=== PATIENT | male | born 1995 | race Caucasian/White ===

== ENCOUNTER 2017-12-12 20:46 | Emergency (ER) | payer BC ==
[~2017-12-12] VITALS: Ht 170.2 cm; Wt 78.0 kg
[2017-12-12 20:53] VITALS: BP 145/79; PULSE 91; RESP 16; TEMP 97.8; O2SAT 97
[2017-12-12 21:06] VITALS: BP 150/95; PULSE 99; RESP 17; O2SAT 99
[2017-12-12 21:26] VITALS: RESP 14; O2SAT 99
[2017-12-12] MEDS ORDERED: PANTOPRAZOLE SODIUM 40 MG VIAL IV PUSH ONE (21:30)
[2017-12-12] MEDS ORDERED: ONDANSETRON ODT 4 MG TAB PO ONE (21:30)
[2017-12-12] MEDS ORDERED: SODIUM CHLOR 0.9% 1000 ML INJ 1,000 ML IV ONE (21:30)
--- NOTE | 2017-12-12 21:34 | PD ---
HPI Chief Complaint: Abdominal Pain Time Seen by Provider: 20:59 Travel History International Travel<30 days: Yes Contact w/Intl Traveler<30days: Yes Name of Country Traveled to: [place] Traveled to known affect area: Yes History of Present Illness HPI The patient is a 22 year old male who presents to the [facility] emergency department with a history of midepigastric abdominal pain that he reports has been occurring daily and usually occurs at night over the last 1-2 months. He reports that he has had problems with his stomach in the past and in 2009 underwent endoscopy that revealed gastritis. He reports that he has not followed up with a physician regarding this since moving to this country. The patient reports that he has had nausea and vomiting associated with this. He denies having any diarrhea. He reports that he has been moving his bowels regularly. He denies having any blood in his stool or black or tarry stools. He denies having any weight loss. He reports that the abdominal pain is squeezing in character. He reports having associated abdominal bloating at night that goes away by the morning. He denies having any dysuria, hematuria, urinary urgency, or frequency. He reports that certain foods do make his symptoms worse as well as drinking alcohol. He reports that he drinks alcohol on the weekend. He reports that he drinks "a lot" on the weekends. On review of systems otherwise, the patient denies having any known recent fevers, cough or congestion, neck pain, chest pain, shortness of breath, or neurologic symptoms. The patient denies taking anything for these symptoms. He denies taking Tylenol, ibuprofen, Aleve, or any other seka-yyw-noaffoh medications on a regular basis [facility] Past Medical History Narrative Medical The patient's past medical history is significant for gastritis diagnosed in 2009 Immunizations Current: Yes Tetanus Vaccination: Unknown Influenza Vaccination: Yes Past Surgical History Narrative Surgical The patient's past surgical history is reportedly none. Social History Alcohol Use: Yes (A lot reportedly on the weekends) Tobacco Use: No Substance Use: No Allergies-Medications (Allergen,Severity, Reaction): Coded Allergies: No Known Allergies (Unverified , 12/12/17) Reported Meds & Prescriptions Reported Meds & Active Scripts Active No Active Prescriptions or Reported Medications Review of Systems Except as stated in HPI: all other systems reviewed are Neg General / Constitutional: No: Fever Eyes: No: Visual changes HENT: No: Headaches Cardiovascular: No: Chest Pain or Discomfort Respiratory: No: Shortness of Breath Gastrointestinal: Positive: Nausea, Vomiting, Abdominal Pain, Indigestion, No: Diarrhea, Hematochezia, Constipation, Changes in Bowel Habits, Loss of Appetite Genitourinary: No: Dysuria Musculoskeletal: No: Pain Skin: No Rash Neurologic: Positive: Weakness (Generalized fatigue and weakness), No: Focal Abnormalities, Change in Mentation, Slurred Speech, Sensory Disturbance Psychiatric: No: Depression Endocrine: No: Polydipsia Hematologic/Lymphatic: No: Easy Bruising Physical Exam Narrative General: The patient is a well-developed well-nourished male in no acute distress. Head and Neck exam: Head is normocephalic atraumatic. Eyes: EOMI, pupils are equal round and reactive to light. Nose: Midline septum with pink mucous membranes Mouth: Dentition unremarkable. Moist mucus membranes. Posterior oropharynx is not erythematous. No tonsillar hypertrophy. Uvula midline. Airway patent. Neck: No palpable lymphadenopathy. No nuchal rigidity. No thyromegaly. Cardiovascular: Regular rate and rhythm without murmurs, gallops, or rubs. No pulse deficit to the extremities on simultaneous auscultation and palpation of his radial artery. Lungs: Clear to auscultation bilaterally. No wheezes, rhonchi, or rales. Abdomen: Soft, with reported discomfort on palpation of the midepigastric and left upper quadrant of the abdomen, no other tenderness on palpation of the other quadrants. No tenderness on palpation of McBurney's point. Negative Posadas sign. Normal bowel sounds are audible. No guarding, rebound, or rigidity. Extremities: No clubbing, cyanosis, or edema. 2+ pulses in all 4 extremities. No calf tenderness on palpation. Back: No costovertebral angle tenderness to palpation. Neurologic Exam: Grossly nonfocal. Skin Exam: No rash noted. Intact skin that is warm and dry. Data Data Last Documented VS Vital Signs Date Time Temp Pulse Resp B/P (MAP) Pulse Ox O2 Delivery O2 Flow Rate FiO2 12/12/17 21:26 14 99 Room Air 12/12/17 21:06 99 12/12/17 20:53 97.8 Orders Orders Electrocardiogram (12/12/17 21:23) Complete Blood Count With Diff (12/12/17 21:23) Comprehensive Metabolic Panel (12/12/17 21:23) C-Reactive Protein (Crp) (12/12/17 21:23) Lipase (12/12/17 21:23) Urinalysis - C+S If Indicated (12/12/17 21:23) Magnesium (Mg) (12/12/17 21:23) Chest, Single Ap (12/12/17 21:23) Iv Access Insert/Monitor (12/12/17 21:23) Ecg Monitoring (12/12/17 21:23) Oximetry (12/12/17 21:23) Sodium Chlor 0.9% 1000 Ml Inj (Ns 1000 M (12/12/17 21:30) Ondansetron Odt (Zofran Odt) (12/12/17 21:30) Pantoprazole Inj (Protonix Inj) (12/12/17 21:30) Ct Abd/Pel W Iv Contrast(Rout) (12/12/17 22:35) Sodium Chlorid 0.9% 500 Ml Inj (Ns 500 M (12/12/17 22:45) Iohexol 350 Inj (Omnipaque 350 Inj) (12/12/17 23:07) Labs Laboratory Tests Test 12/12/17 21:30 12/12/17 22:55 White Blood Count 13.6 TH/MM3 Red Blood Count 6.41 MIL/MM3 Hemoglobin 16.5 GM/DL Hematocrit 51.3 % Mean Corpuscular Volume 80.1 FL Mean Corpuscular Hemoglobin 25.7 PG Mean Corpuscular Hemoglobin Concent 32.1 % Red Cell Distribution Width 14.8 % Platelet Count 238 TH/MM3 Mean Platelet Volume 8.4 FL Neutrophils (%) (Auto) 88.1 % Lymphocytes (%) (Auto) 6.7 % Monocytes (%) (Auto) 4.7 % Eosinophils (%) (Auto) 0.0 % Basophils (%) (Auto) 0.5 % Neutrophils # (Auto) 12.0 TH/MM3 Lymphocytes # (Auto) 0.9 TH/MM3 Monocytes # (Auto) 0.6 TH/MM3 Eosinophils # (Auto) 0.0 TH/MM3 Basophils # (Auto) 0.1 TH/MM3 CBC Comment DIFF FINAL Differential Comment Blood Urea Nitrogen 13 MG/DL Creatinine 0.98 MG/DL Random Glucose 112 MG/DL Total Protein 8.9 GM/DL Albumin 4.9 GM/DL Calcium Level 9.8 MG/DL Magnesium Level 2.1 MG/DL Alkaline Phosphatase 69 U/L Aspartate Amino Transf (AST/SGOT) 18 U/L Alanine Aminotransferase (ALT/SGPT) 21 U/L Total Bilirubin 0.3 MG/DL Sodium Level 139 MEQ/L Potassium Level 3.9 MEQ/L Chloride Level 102 MEQ/L Carbon Dioxide Level 25.3 MEQ/L Anion Gap 12 MEQ/L Estimat Glomerular Filtration Rate 96 ML/MIN C-Reactive Protein LESS THAN 0.29 MG/DL Lipase 55 U/L Urine Color YELLOW Urine Turbidity CLEAR Urine pH 7.0 Urine Specific [place] 1.029 Urine Protein 100 mg/dL Urine Glucose (UA) NEG mg/dL Urine Ketones 80 OR GREATER mg/dL Urine Occult Blood NEG Urine Nitrite NEG Urine Bilirubin NEG Urine Urobilinogen LESS THAN 2 mg/dL Urine Leukocyte Esterase NEG Urine RBC 12 /hpf Urine WBC 2 /hpf Urine Mucus FEW /lpf Microscopic Urinalysis Comment CULT NOT INDICATED MDM Medical Decision Making Medical Screen Exam Complete: Yes Emergency Medical Condition: Yes Medical Record Reviewed: Yes Differential Diagnosis Pancreatitis, versus gastritis, versus peptic ulcer disease, versus bowel perforation Narrative Course During the course of the patient's emergency department visit, the patient's history, examination, and differential diagnosis were reviewed with the patient. The patient was placed on a shelter monitor with oximetry and frequent blood pressure monitoring. The patient had IV access obtained and blood work sent for analysis. The patient had an EKG done on arrival. The patient's EKG shows a sinus rhythm with sinus arrhythmia, heart rate of 83, QRS duration 90 ms , QTC [address] segment elevation is noted. T waves are inverted in lead III, flattened V1. No acute ST segment elevation The patient was initially provided normal saline 1 L IV fluid bolus, Zofran ODT , Protonix 40 mg IV. The patient's laboratory studies were reviewed and remarkable for a white count of 13.6, hemoglobin 16.5, platelets 238 with 88.1 neutrophils, CMP is remarkable for glucose of 112, C-reactive protein is less than 0.29, lipase is 55. Urinalysis shows 100 protein 80 or greater ketones 12 RBCs, few mucus, culture not indicated Radiology studies were reviewed and remarkable for Last Impressions Abdomen/Pelvis CT 12/12/172234 Signed Impressions: CONCLUSION: 1. No acute abnormality seen. 2. Hepatic steatosis. Chest X-Ray 12/12/172122 Signed Impressions: CONCLUSION: Negative examination. The patient was provided another normal saline bolus. The patient was instructed regarding the findings of microscopic hematuria. He is given the name of the urologist director non profit for follow-up, Dr. Lorenzana. The patient will also be given the name of the psychologist counseling director non profit for follow-up, Dr. Hernandez. He is instructed to call the specialist in the morning to schedule an appointment for follow-up. The patient is resting comfortably and feels better, is alert and in no distress. The patient's results and examination findings were discussed with the patient. The repeat examination is unremarkable and benign. The history, exam, diagnostic testing, and current condition do not suggest any significant pathology to warrant further testing, continued ED treatment, admission, or surgical evaluation at this point. The vital signs have been stable. The patient does not have uncontrollable pain, intractable vomiting, or other significant symptoms. The patient's condition is stable and appropriate for discharge. The patient will pursue further outpatient evaluation with a primary care physician or other designated or consulting physician as indicated in the discharge instructions. The patient is instructed to report back to the emergency department immediately for reexamination in the mean time if he develops any new or worsening signs or symptoms. The patient expressed understanding and was agreeable with this plan. Diagnosis Primary Impression: Abdominal pain Qualified Codes: R10.13 - Epigastric pain Additional Impressions: Vomiting Qualified Codes: R11.2 - Nausea with vomiting, unspecified Hematuria Qualified Codes: R31.21 - Asymptomatic microscopic hematuria Referrals: Nabila Hernandez MD, [facility] Patient Instructions: Abdominal Pain (ED), Acute Nausea and Vomiting (ED), General Instructions, Hematuria (ED) Med/Other Pt SpecificInfo: Prescription(s) given Scripts Ondansetron Odt (Zofran Odt) 4 Mg Tab 4 MG SL Q6HR Y for Nausea/Vomiting, #7 TAB 0 Refills Prov: Lacey Dove MD 12/12/17 Ranitidine (Ranitidine) 150 Mg Tab 150 MG PO BID for Heartburn Management, #60 TAB 0 Refills Prov: Lacey Dove MD 12/12/17 Disposition: 01 DISCHARGE HOME Condition: Stable Lacey Dove MD Dec 12, 2017 21:34
[2017-12-12 21:41] LABS: BASOPHIL # 0.1 TH/MM3 (0-0.2); BASOPHIL % 0.5 % (0.0-2.0); HEMATOCRIT 51.3 % (39.0-51.0); HEMOGLOBIN 16.5 GM/DL (13.0-17.0); LYMPH % 6.7 % (9.0-44.0); LYMPHOCYTE # 0.9 TH/MM3 (1.0-4.8); MEAN CELL VOLUME 80.1 FL (80.0-100.0); MEAN CORPUSCULAR HEMOGLOBIN 25.7 PG (27.0-34.0); MEAN CORPUSCULAR HGB CONC 32.1 % (32.0-36.0); MEAN PLATELET VOLUME 8.4 FL (7.0-11.0); MONO % 4.7 % (0.0-8.0); MONOCYTE # 0.6 TH/MM3 (0-0.9); NEUT % 88.1 % (16.0-70.0); PLATELET COUNT 238 TH/MM3 (150-450); RED BLOOD COUNT 6.41 MIL/MM3 (4.50-5.90); RED CELL DISTRIBUTION WIDTH 14.8 % (11.6-17.2); WHITE BLOOD COUNT 13.6 TH/MM3 (4.0-11.0)
[2017-12-12 22:04] LABS: ALBUMIN 4.9 GM/DL (3.4-5.0); ALT (GPT) 21 U/L (12-78); AST (GOT) 18 U/L (15-37); BICARBONATE 25.3 MEQ/L (21.0-32.0); BLOOD UREA NITROGEN 13 MG/DL (7-18); C-REACTIVE PROTEIN LESS THAN 0.29 MG/DL (0.00-0.30); CALCIUM 9.8 MG/DL (8.5-10.1); CHLORIDE 102 MEQ/L (98-107); CREATININE 0.98 MG/DL (0.60-1.30); GLOMERULAR FILTRATION RATE 96 ML/MIN (>89); GLUCOSE,RANDOM 112 MG/DL (74-106); MAGNESIUM 2.1 MG/DL (1.5-2.5); SODIUM (NA) 139 MEQ/L (136-145)
[2017-12-12 22:07] LABS: ALKALINE PHOSPHATASE 69 U/L (45-117); TOTAL BILIRUBIN ADULT 0.3 MG/DL (0.2-1.0); TOTAL PROTEIN 8.9 GM/DL (6.4-8.2)
--- NOTE | 2017-12-12 22:16 | RADRPT ---
EXAM DATE: 12/12/2017 9:42 PM EDT AGE/SEX: 22 years / Male INDICATIONS: Vomiting CLINICAL DATA: This is the patient's initial encounter. Patient reports that signs and symptoms have been present for 1 day and indicates a pain score of 0/10. MEDICAL/SURGICAL HISTORY: None. None. COMPARISON: No prior exams available for comparison. FINDINGS: A single AP view of the chest demonstrates the lungs to be symmetrically aerated without evidence of mass, infiltrate or effusion. The cardiomediastinal contours are unremarkable. Osseous structures a re intact. CONCLUSION: Negative examination. Electronically signed by: Jerry Garcia MD 12/12/2017 10:14 PM EDT
[2017-12-12] MEDS ORDERED: SODIUM CHLORID 0.9% 500 ML INJ 500 ML IV ONE ×2 (22:45→23:30)
[2017-12-12] MEDS ORDERED: IOHEXOL 350 MG/ML 10 ML VIAL (for RAD DIAG) IVCONTRAST ONE (23:07)
[2017-12-12 23:11] LABS: BILIRUBIN, URINE NEG (NEG); BLOOD, URINE NEG (NEG); GLUCOSE,URINE NEG (NEG); KETONE, URINE 80 OR GREATER mg/dL (NEG); MUCUS URINE FEW /lpf (OCC); NITRITE,URINE NEG (NEG); URINE COLOR YELLOW (YELLW/STRAW); URINE LEUKOCYTE ESTERASE NEG (NEG)
--- NOTE | 2017-12-12 23:25 | RADRPT ---
EXAM DATE: 12/12/2017 11:11 PM EDT AGE/SEX: 22 years / Male INDICATIONS: Abdominal pain. CLINICAL DATA: This is the patient's initial encounter. Patient reports that signs and symptoms have been present for 1 day and indicates a pain score of 6/10. MEDICAL/SURGICAL HISTORY: None. None. ORAL CONTRAST: No oral contrast ingested. RADIATION DOSE: 5.62 CTDI (mGy) COMPARISON: No prior exams available for comparison. TECHNIQUE: Multiple contiguous axial images were obtained through the abdomen and pelvis following b olus infusion of 96 ml Omnipaque 350 (iohexol) nonionic water-soluble contrast as a single exam dos e. No oral contrast ingested. Using automated exposure control and adjustment of the mA and/or kV ac cording to patient size, radiation dose was kept as low as reasonably achievable to obtain optimal di agnostic quality images. DICOM format image data is available electronically for review and comparis on. FINDINGS: Lower Lungs: The visualized lower lungs are clear. Liver: The liver demonstrates diffuse decreased attenuation. Spleen: Homogeneous density without enlargement. Pancreas: Unremarkable without mass or calcification. Kidneys: Normal in size and shape. No evidence of mass or hydronephrosis. Adrenal Glands: Unremarkable. Aorta: The aorta and proximal iliac vessels are grossly unremarkable without aneurysmal dilation. Bowel/Mesentery: The bowel loops are grossly unremarkable. The cecum and sigmoid colon have a normal configuration. The appendix appears normal. Abdominal Wall: Intact. Retroperitoneum: No evidence of adenopathy in the retrocrural, para-aortic, or deep pelvic regions. Bladder: Contours are smooth. Reproductive Organs: No abnormal masses or calcifications seen. Inguinal: The inguinal region is unremarkable without evidence of adenopathy. Bony Structures: Unremarkable. CONCLUSION: 1. No acute abnormality seen. 2. Hepatic steatosis. Electronically signed by: Saw Trinidad MD 12/12/2017 11:24 PM EDT
[2017-12-12] MEDS ORDERED: ZOFR4TAB3 SL (23:32)
[2017-12-12] MEDS ORDERED: RANI150T PO (23:32)
--- NOTE | 2017-12-13 23:09 | EKG ---
Date Performed: 12/12/2017 Time Performed: 21:33:58 PTAGE: 22 years EKG: Sinus rhythm WITH SINUS ARRHYTHMIA POSSIBLE RIGHT VENTRICULAR CONDUCTION DELAY NONSPECIFIC T-WAVE ABNORMALITY BOR DERLINE ECG NO PREVIOUS TRACING DOCTOR: Stepan Damon Interpretating Date/Time 12/13/2017 23:08:02
== END 2017-12-13 01:01 | disposition home or self-care (01) ==
LOC: NEPC 20:46
DX: R10.13 Epigastric pain (principal); R11.2 Nausea with vomiting, unspecified; R31.21 Asymptomatic microscopic hematuria; R94.31 Abnormal electrocardiogram [ECG] [EKG]; K76.0 Fatty (change of) liver, not elsewhere classified; R53.1 Weakness
CPT/HCPCS: 71045; 74177; 80053; 81001; 83690; 83735; 85025; 86140; 93005; 96374; 99285; C9113; J7030; J7040; Q9967